=== PATIENT | male | born 1950 | race Caucasian/White ===

== ENCOUNTER 2021-11-20 22:39 | Emergency (ER) | payer MEDICARE, BC ==
[~2021-11-20] VITALS: Ht 177.8 cm; Wt 113.6 kg
[2021-11-20 23:05] LABS: BASO # 0.06 K/mm3 (0.02-0.10); EOS # 0.14 K/mm3 (0.04-0.40); EOS % 1.2 % (0.0-4.0); HEMATOCRIT 44.6 % (42.0-52.0); HEMOGLOBIN 15.6 g/dL (13.5-18.0); LYMPH# 4.97 K/mm3 (1.50-4.00); MEAN CELL VOLUME 98 fl (78-100); MEAN CORPUSCULAR HEMOGLOBIN 34 pg (27-31); MEAN CORPUSCULAR HGB CONC 35 g/dL (33-37); MEAN PLATELET VOLUME 9.3 fl (7.4-10.4); MONO # 1.11 K/mm3 (0.20-0.80); NEU # 5.42 K/mm3 (1.40-6.50); PLATELET COUNT 159 K/mm3 (130-400); RED BLOOD COUNT 4.57 M/mm3 (4.20-5.60); RED CELL DISTRIBUTION WIDTH 12.5 % (11.5-14.5); WHITE BLOOD COUNT 11.8 K/mm3 (4.8-10.8)
[2021-11-20 23:10] LABS: ALBUMIN 3.7 g/dL (3.4-4.8); POTASSIUM 3.4 mmol/L (3.5-5.1); SODIUM 131 mmol/L (136-145)
[2021-11-20 23:11] LABS: CALCIUM 8.8 mg/dL (8.3-10.5)
[2021-11-20 23:12] LABS: GLUCOSE 116 mg/dL (75-110)
[2021-11-20 23:13] LABS: TOTAL PROTEIN 7.4 g/dL (6.2-8.1)
[2021-11-20 23:14] LABS: TOTAL BILIRUBIN 0.9 mg/dL (0.2-1.2)
[2021-11-20 23:15] LABS: ALCOHOL IN-HOUSE 187 mg/dL (<10)
[2021-11-20 23:18] LABS: AST-SGOT 41 U/L (5-34)
[2021-11-20 23:19] LABS: ALT/SGPT 44 U/L (0-55)
[2021-11-20 23:22] LABS: CARBON DIOXIDE 16 mmol/L (23-31)
[2021-11-20 23:25] LABS: TROPONIN-I < 0.030 ng/mL (<0.030)
[2021-11-21 00:49] LABS: URINE APPEARANCE CLEAR; URINE BILIRUBIN NEGATIVE (NEGATIVE); URINE BLOOD NEGATIVE (NEGATIVE); URINE COLOR YELLOW; URINE GLUCOSE NEGATIVE (NEGATIVE); URINE KETONE NEGATIVE (NEGATIVE); URINE LEUKOCYTE ESTERASE NEGATIVE (NEGATIVE); URINE NITRATE NEGATIVE (NEGATIVE); URINE PROTEIN(semi-quant) NEGATIVE (NEGATIVE); URINE UROBILINOGEN NORMAL (NORMAL); URINE WBC 0-1 /hpf (0-3)
[2021-11-21 01:39] VITALS: BP 151/96
== END 2021-11-21 01:43 | disposition home or self-care (01) ==
LOC: ED 22:39
PROVIDERS: Physician Assistant
DX: T67.5XXA Heat exhaustion, unspecified, initial encounter (principal); E86.0 Dehydration; E87.6 Hypokalemia; E87.1 Hypo-osmolality and hyponatremia; F17.220 Nicotine dependence, chewing tobacco, uncomplicated; Z28.311 Partially vaccinated for COVID-19; X30.XXXA Exposure to excessive natural heat, initial encounter
CPT/HCPCS: J7030